=== PATIENT | male | born 1975 | race Two or more races ===

== ENCOUNTER 2025-08-07 07:45 | Day surgery (SDC) | payer MEDICAID, SELFPAY ==
[2025-08-05 08:17] VITALS: BMI 23.7
--- NOTE | 2025-08-05 08:26 | EKG_ITS ---
[facility] Test Date: 2025-08-05 Pat Name: LLOYD RAYO Department: Room: - Gender: Male Seo Intern: MARIBEL : 1975 Requested By: Joe Hallman Order Number: [id number] Reading MD: Joe Hallman Measurements Intervals [place] Rate: 50 P: 64 MS: 174 QRS: 85 QRSD: 81 T: 75 QT: 429 QTc: 392 Interpretive Statements SINUS BRADYCARDIA POSSIBLE LEFT ATRIAL ENLARGEMENT [-0.1mV P WAVE IN V1/V2] Compared to ECG 07/12/2021 06:43:01 No significant changes /store/S0/[id number]/ecg/[id number].pdf
[2025-08-05 09:00] LABS: Basophils # (Auto) 0.1 Thou/mm3 (0.0-0.2); Basophils % (Auto) 1 % (0-2.5); Eosinophils # (Auto) 0.2 Thou/mm3 (0.0-0.5); Eosinophils % (Auto) 4 % (0-10); Hematocrit 43.0 % (41.0-53.0); Hemoglobin 15.1 g/dL (13.5-16.0); Immature Granulocytes Auto 0.02 Thou/mm3 (0.00-0.00); Lymphocytes # (Auto) 2.0 Thou/mm3 (1.0-4.8); Lymphocytes % (Auto) 29 % (10-50); Mean Corpuscular HGB Conc 35.1 g/dl (31.0-37.0); Mean Corpuscular Hemoglobin 32.4 pg (25.0-35.0); Mean Corpuscular Volume 92 fL (80-100); Monocytes # (Auto) 0.6 Thou/mm3 (0.0-0.8); Monocytes % (Auto) 8 % (0-12); Neutrophils # (Auto) 3.9 Thou/mm3 (1.8-7.7); Neutrophils % (Auto) 58 % (37-80); Nucleated Red Blood Cell # 0.00 Thou/mm3 (0.00-0.00); Nucleated Red Blood Cell % 0 /100 WBC (0); Platelet Count 222 Thou/mm3 (140-440); RDW Standard Deviation 43.5 fL (35.1-43.9); Red Blood Count 4.66 Miln/mm3 (4.50-5.90); White Blood Count 6.7 Thou/mm3 (3.8-10.6)
[2025-08-05 09:07] LABS: INR 0.9 (0.9-1.3); Partial Thromboplastin Time 27.0 Seconds (22.0-36.0); Prothrombin Time 10.3 Seconds (9.0-12.2)
[2025-08-05 09:16] LABS: Alanine Aminotransferase 29 U/L (10-49); Albumin, Serum 4.8 gm/dL (3.5-5.0); Albumin/Globulin Ratio 1.7 (1.2-2.2); Alkaline Phosphatase 109 U/L (46-116); Anion Gap 8 (7-16); Aspartate Amino Transferase 31 U/L (0-34); BUN/Creatinine Ratio 11 Ratio (12-20); Bilirubin,Total 0.6 mg/dL (0.3-1.2); Blood Urea Nitrogen 8 mg/dL (9-23); Calcium 10.3 mg/dL (8.3-10.6); Calcium (Corrected) 10.3 mg/dL (8.5-10.1); Carbon Dioxide 29.1 mMol/L (20.0-31.0); Chloride 103 mMol/L (98-107); Creatinine (Component) 0.7 mg/dL (0.6-1.3); Estimated Creatinine Clearance 115.2 mL/min (>60); Globulin 2.8 gm/dL (2.3-3.5); Glucose 103 mg/dL (74-106); Osmolality,Calculated 277 (275-295); Potassium 4.1 mMol/L (3.4-5.1); Sodium 140 mMol/L (136-145); Total Protein 7.6 gm/dL (5.7-8.2); eGFR > 60 See Note
--- NOTE | 2025-08-06 12:47 | SUR.PREOP ---
Pt notified to come in tomorrow at 0800 for surgery.
--- NOTE | 2025-08-06 14:37 | SUR.PREOP ---
Pt was instructed to take his mestinon and HTN meds tomorrow before coming
[2025-08-07] VITALS (7 sets, daily range): BP systolic 113–171; BP diastolic 61–88; PULSE 60–108; RESP 16–20; TEMP 36.4–37.1; O2SAT 97–98; BMI 22.1
--- NOTE | 2025-08-07 08:44 | SUR.PREOP ---
Patient expressed gratitude for prayer before their procedure.
--- NOTE | 2025-08-07 11:35 | SUR.PHASEI ---
1135 Patient arrived to recovery resting comfortably in [facility], on oxygen 10L via oxy mask with an oral and nasal airway in place, breathing unlabored, vital signs stable, dressing intact to left groin; sutures, adaptic, gauze, medipore tape, no bleeding, report received from Radha JIANG and Dr. Hallman
--- NOTE | 2025-08-07 11:38 | PD.SUROPNT ---
Date of Procedure 08/07/25 Pre Op Diagnosis Symptomatic left inguinal hernia Post Op Diagnosis Same, direct and type Procedure Repair of the left direct inguinal hernia on the left side with reconstruction of the floor of the inguinal area Findings Patient had a large defect in the hasselbach's triangle as a result of bulging of transversalis fascia. There was no direct component but there was slight opening at the internal ring which was allowing a fatty tissue coming through Procedure Description After the patient was given general anesthesia patient was placed in supine position. Lower abdomen was prepped with ChloraPrep solution and draped in a sterile manner. Then the [left] inguinal incision was made for about [6 cm] in length. External oblique was incised and the cord structures were encircled and(. The patient was found to have no indirect sac and it was obvious that the patient had a large direct inguinal hernia because of the bulging medial to the cord structures in the transversalis fascia over hasselbach triangle The cord structures were encircled around a [place] drain. The floor of the inguinal canal was reconstructed as follows: I made an incision in the transversalis fascia which was thin and attenuated. The preperitoneal fat was entered and the used 3 4 x 4's to create a space to place the modified Ventralex ST mesh measuring [3.2 inches] in diameter. After the mesh was placed in the superior strap was attached to the internal oblique with a 2-0 Prolene. The inferior strap was attached to the Mani's ligament using 2-0 Prolene. The sponge count was made to confirm that all of them were removed before the mesh was placed in place. Then I approximated the transversalis fascia over the mesh using a 2-0 Prolene. At the end of the floor of the inguinal canal appeared to be strong and without any weakness. Then I placed an onlay mesh over the floor and attached it medially to the pubic tubercle with a 2-0 Prolene suture. Laterally it was encircling the cord structures after making a hole in the mesh. The tails of the mesh was tucked underneath the external oblique. After checking for any bleeding point the external oblique was closed with a running 2-0 Vicryl. Subcutaneous tissues was closed with 3?``0 plain and I injected half percent Marcaine with epinephrine for analgesia. The subcuticular approximation was performed with 4-0 Monocryl. Dressing was applied with Adaptic and 4 x 4 and the patient tolerated the procedure well and was returned to recovery room in stable condition. Anesthesia GETA Pathology / specimen None IVF Infused 900 Estimated Blood Loss 20 Surgeon Raghu Fontaine MD Surgical Staff Operation Date: 08/07/25 10:00 Case Staff Anesthesiologist: Joe Hallman RNhydramatic specialist: Lakisha Rodriguez
--- NOTE | 2025-08-07 12:42 | SUR.PHASEII ---
1242 Patient meets discharge criteria from recovery, awake and alert, breathing unlabored, vital signs stable, denies pain, dressing intact; no bleeding noted, ate a jello and drinking fluids; denies nausea, assisted with dressing into his clothing by his , discharge instructions given to patient and patients with the assistance of the telephone social science professor Rohith ID# [id number], patient signed discharge instructions. Patient given all his belongings prior to discharge, transported via wheelchair and left in a private vehicle.
--- NOTE | 2025-08-13 14:31 | PD.ANESPROG ---
Documentation for date of: 08/13/25 POST ANESTHESIA NOTE: Patient had GETA for L inguinal hernia repair on 08/07/25. I just called his number for follow up but no answer. Joe Hallman MD Anesthesia Progress Note Progress Note Most recent Vital Signs: Last Vital Signs Temp 98.0 F 08/07/25 12:05 Pulse 87 08/07/25 12:20 Resp 20 08/07/25 12:20 BP 151/78 H 08/07/25 12:20 Pulse Ox 97 08/07/25 12:20 O2 Flow Rate 5 08/07/25 11:50
== END 2025-08-07 12:42 | disposition home or self-care (01) ==
PROVIDERS: PCP Physician Assistant; Referring Provider Surgery; Visit Provider Surgery
PROC: (CPT 49505; principal; 2025-08-07 09:45)
DX: K40.90 Unilateral inguinal hernia, without obstruction or gangrene, not specified as recurrent (principal); Z01.810 Encounter for preprocedural cardiovascular examination; E11.9 Type 2 diabetes mellitus without complications; I10 Essential (primary) hypertension
CPT/HCPCS: 49505; 36415; 80053; 85025; 85610; 85730; 93005; A4649; C1781; J0131; J1100; J2371; J2704; J2765; J3010; J3490; A9270